=== PATIENT | male | born 1985 | race African-American/Black ===

== ENCOUNTER 2020-06-08 10:36 | Inpatient (IN) ==
[2020-06-08] MEDS ORDERED: ONDANSETRON 4 MG/2 ML VIAL IV STA (11:35)
[2020-06-08] MEDS ORDERED: HYDROmorphone 2 MG/1 ML VIAL IV STA (11:36)
[2020-06-08] MEDS ORDERED: ceFAZolin 2,000 MG in PREMIX 1 EACH IV ONE (12:31)
[2020-06-08] MEDS: LACTATED RINGERS 1,000 ML IV SCH ×2 (12:50→21:28)
[2020-06-08 13:17] LABS: Barbiturates Screen,Urine Negative (Negative); Benzodiazepines Screen,Urine Negative (Negative); Cannabinoid Screen,Urine Positive (Negative); Opiate Screen,Urine Positive (Negative); Phencyclidine Screen,Urine Negative (Negative)
[2020-06-08 13:25] LABS: Bilirubin,Total 0.6 MG/DL (0.2-1.0); Calcium 9.2 MG/DL (8.5-10.1); Osmolality,Calculated 273.7 MOS/KG (273-304); Total Protein 8.1 G/DL (6.4-8.3)
[2020-06-08] MEDS ORDERED: DESFLURANE 1 UNIT/15 MINUTE INH ONE ×2 (13:25→17:00)
[2020-06-08 13:26] LABS: Basophils # 0.1 10*3/uL (0.0-0.2); Basophils % 0.5 % (0.0-0.8); Eosinophils % 0.3 % (0.00-10.9); Hemoglobin 14.4 GM/DL (14.0-18.0); Immature Granulocytes % 0.5 %; Immature Granulocytes Absolute 0.06 #; Lymphocytes # 2.3 10*3/uL (1.4-4.0); Lymphocytes % 19.7 % (21.2-54.2); Mean Corpuscular HGB Conc 33.5 GM/DL (32-36); Mean Corpuscular Volume 91.9 FL (87-102); Mean Platelet Volume 10.5 FL (9.6-12.0); Monocytes % 9.6 % (1.7-12.7); Neutrophils % 69.4 % (38.7-73.9); Platelet Count 286 T/CUMM (130-400); Red Blood Count 4.68 MC/CUMM (3.8-5.5); Red Cell Distribution Width 13.4 % (9.3-17.3); White Blood Count 11.8 T/CUMM (4-12)
[2020-06-08] MEDS ORDERED: BACITRACIN OINT 0.9 GM PACK TOP ONE (13:34)
[2020-06-08] MEDS ORDERED: MAGNESIUM HYDROXIDE SUSP 30 ML UDCUP PO PRN ×2 (16:34→17:51)
[2020-06-08] MEDS ORDERED: diphenhydrAMINE CAP 25 MG CAPSULE PO PRN (16:34)
[2020-06-08] MEDS ORDERED: ONDANSETRON 4 MG/2 ML VIAL IV PRN (16:34)
[2020-06-08] MEDS ORDERED: MORPHINE 4 MG/1 ML VIAL IV PRN ×2 (16:34)
[2020-06-08 16:56] LABS: Bacteria,Urine Occasional /HPF (Few); Bilirubin,Urine Negative (Negative); Blood, Urine Small mg/dL (Negative); Glucose,Urine (UA) Negative (Negative); Ketones,Urine Negative (Negative); Mucus,Urine Occasional /LPF (Occasional); Nitrite,Urine Negative (Negative); Protein,Urine Negative; RBC,Urine 2 /HPF (0-4); Urine Appearance CLEAR (Clear); Urine Color Yellow (Yellow); Urine Specific Gravity 1.025 (1.001-1.035); Urine Urobilinogen < 2.0 EU/DL (0.2-1.0); WBC,Urine 1 /HPF (0-6)
[2020-06-08] MEDS ORDERED: fentaNYL 100 MCG/2 ML VIAL ONE (17:00)
[2020-06-08] MEDS ORDERED: LIDOCAINE 2% 5 ML VIAL ONE (17:00)
[2020-06-08] MEDS ORDERED: MIDAZOLAM 2 MG/2 ML VIAL ONE (17:00)
[2020-06-08] MEDS ORDERED: propofoL 200 MG/20 ML VIAL IV ONE (17:00)
[2020-06-08] MEDS ORDERED: GLYCOPYRROLATE 0.4 MG/2 ML VIAL ONE (17:01)
[2020-06-08] MEDS ORDERED: DEXAMETHASONE 4 MG/1 ML VIAL ONE (17:01)
[2020-06-08] MEDS ORDERED: ROCURONIUM 100 MG/10 ML VIAL IV ONE (17:01)
[2020-06-08] MEDS ORDERED: LACTATED RINGERS 1,000 ML IV ONE (17:01)
[2020-06-08] MEDS ORDERED: NEOSTIGMINE 10 MG/10 ML VIAL ONE (17:01)
[2020-06-08] MEDS ORDERED: ACETAMINOPHEN 1,000 MG/100 ML VIAL IV ONE (17:01)
[2020-06-08] MEDS ORDERED: SUCCINYLCHOLINE 200 MG/10 ML VIAL ONE (17:01)
[2020-06-08] MEDS: KETOROLAC 30 MG/1 ML VIAL IV SCH ×2 (18:00→23:27)
[2020-06-08] MEDS: DOCUSATE SODIUM 100 MG CAPSULE PO SCH (21:28)
[2020-06-08] MEDS: ceFAZolin 2,000 MG in PREMIX 1 EACH IV SCH (21:29)
[2020-06-09] MEDS: LACTATED RINGERS 1,000 ML IV SCH (03:09)
[2020-06-09] MEDS: ceFAZolin 2,000 MG in PREMIX 1 EACH IV SCH (05:06)
[2020-06-09] MEDS: KETOROLAC 30 MG/1 ML VIAL IV SCH ×3 (05:08→13:08)
[2020-06-09 05:46] LABS: Basophils % 0.2 % (0.0-0.8); Hematocrit 37.4 VOL% (42.0-52.0); Hemoglobin 12.9 GM/DL (14.0-18.0); Immature Granulocytes % 0.4 %; Immature Granulocytes Absolute 0.05 #; Lymphocytes # 1.9 10*3/uL (1.4-4.0); Lymphocytes % 16.6 % (21.2-54.2); Mean Corpuscular HGB Conc 34.5 GM/DL (32-36); Mean Corpuscular Volume 90.3 FL (87-102); Mean Platelet Volume 10.2 FL (9.6-12.0); Monocytes % 12.7 % (1.7-12.7); Neutrophils % 70.1 % (38.7-73.9); Platelet Count 221 T/CUMM (130-400); Red Blood Count 4.14 MC/CUMM (3.8-5.5); Red Cell Distribution Width 13.2 % (9.3-17.3); White Blood Count 11.7 T/CUMM (4-12)
[2020-06-09 05:59] LABS: Calcium 8.8 MG/DL (8.5-10.1); Osmolality,Calculated 270.1 MOS/KG (273-304)
[2020-06-09] MEDS: FONDAPARINUX 2.5 MG/0.5 ML SYRINGE SUBCUT SCH (10:05)
[2020-06-09] MEDS: MULTIVITAMIN (BEROCCA) TABLET PO SCH (10:08)
[2020-06-09] MEDS: DOCUSATE SODIUM 100 MG CAPSULE PO SCH ×2 (10:09→21:18)
[2020-06-10 05:40] LABS: Basophils # 0.1 10*3/uL (0.0-0.2); Basophils % 0.6 % (0.0-0.8); Eosinophils # 0.1 10*3/uL (0.0-0.87); Eosinophils % 0.4 % (0.00-10.9); Hematocrit 35.4 VOL% (42.0-52.0); Hemoglobin 11.8 GM/DL (14.0-18.0); Immature Granulocytes % 0.4 %; Immature Granulocytes Absolute 0.05 #; Lymphocytes % 34.1 % (21.2-54.2); Mean Corpuscular HGB Conc 33.3 GM/DL (32-36); Mean Corpuscular Volume 91.9 FL (87-102); Mean Platelet Volume 10.8 FL (9.6-12.0); Monocytes % 11.4 % (1.7-12.7); Neutrophils % 53.1 % (38.7-73.9); Platelet Count 219 T/CUMM (130-400); Red Blood Count 3.85 MC/CUMM (3.8-5.5); Red Cell Distribution Width 13.1 % (9.3-17.3); White Blood Count 11.7 T/CUMM (4-12)
[2020-06-10] MEDS: FONDAPARINUX 2.5 MG/0.5 ML SYRINGE SUBCUT SCH (09:55)
[2020-06-10] MEDS: DOCUSATE SODIUM 100 MG CAPSULE PO SCH (09:56)
[2020-06-10] MEDS: MULTIVITAMIN (BEROCCA) TABLET PO SCH (09:56)
[2020-06-10 12:38] VITALS: BP 130/71
== END 2020-06-10 14:15 | disposition home or self-care (01) | DRG 482 ==
LOC: N.ED 10:36 → N.EDINP 12:20 → N.3E 17:42
PROVIDERS: ADMIT Orthopaedic Surgery; ATTEND Orthopaedic Surgery